=== PATIENT | male | born 1950 | race Hispanic/Latino ===

== ENCOUNTER 2018-10-23 13:46 | Emergency (ER) | payer MEDICARE ==
[2018-10-23] MEDS ORDERED: 0.9% SODIUM CHLORIDE 500 ML IV BAG IV ONE (14:28)
[2018-10-23 14:29] LABS: BASOPHILS % (AUTO) 1.3 % (0.0-5.0); EOSINOPHILS % (AUTO) 0.4 % (0.0-8.0); HEMATOCRIT 42.3 % (42-54); LYMPHOCYTES % (AUTO) 21.5 % (21.0-51.0); MEAN CORPUSCULAR HEMOGLOBIN 35.5 pg (27.0-33.0); MEAN CORPUSCULAR HGB CONC 33.6 g/dL (32.0-36.0); MEAN CORPUSCULAR VOLUME 105.6 fL (79-99); MONOCYTES % (AUTO) 4.9 % (3.0-13.0); NEUTROPHILS % (AUTO) 71.9 % (40.0-77.0); PLATELET COUNT (AUTO) 257 K/uL (130-400); RED BLOOD CELL COUNT(AUTO) 4.01 MIL/uL (4.50-6.20); RED CELL DISTRIBUTION WIDTH 14.7 % (11.0-15.5); WHITE BLOOD COUNT (AUTO) 7.2 K/uL (4.8-10.8)
[2018-10-23 14:41] LABS: CREATININE 0.7 mg/dL (0.5-1.5); POTASSIUM 3.7 mmol/L (3.5-5.1)
[2018-10-23 14:46] LABS: ALBUMIN 2.9 g/dL (3.5-5.0); BILIRUBIN,TOTAL 0.5 mg/dL (0.2-1.0); TOTAL PROTEIN, SERUM 7.5 g/dL (6.0-8.3)
[2018-10-23 15:45] LABS: RAPID GROUP A STREP NEGATIVE (NEGATIVE)
[2018-10-23 15:57] LABS: APPEARANCE,URINE CLEAR (CLEAR); BILIRUBIN,URINE NEGATIVE (NEGATIVE); COLOR,URINE YELLOW (YELLOW); GLUCOSE, URINE (UA) NEGATIVE (NEGATIVE); KETONES,URINE NEGATIVE (NEGATIVE); LEUKOCYTE ESTERASE ,URINE NEGATIVE (NEGATIVE); NITRATE,URINE NEGATIVE (NEGATIVE); OCCULT BLOOD,URINE NEGATIVE (NEGATIVE); PROTEIN,URINE NEGATIVE (NEGATIVE); UROBILINOGEN,URINE 0.2 mg/dL (0.2-1.0)
[2018-10-23] MEDS ORDERED: SIMETHICONE 80 MG TAB.CHEW ONE (18:23)
[2018-10-23] MEDS ORDERED: FAMOTIDINE 20MG TAB 20 MG TAB ONE (18:23)
== END 2018-10-23 19:03 | disposition home or self-care (01) ==
LOC: EDH 13:46
DX: R63.0 Anorexia (principal); E11.9 Type 2 diabetes mellitus without complications; I10 Essential (primary) hypertension; E78.5 Hyperlipidemia, unspecified
CPT/HCPCS: 36415; 71045; 80053; 81003; 83690; 85025; 86677; 87804 ×2; 87880; 99284; J7040

== ENCOUNTER 2020-04-27 09:36 | Observation (INO) | payer MEDICARE ==
[~2020-04-27] VITALS: Ht 154.9 cm; Wt 54.0 kg
[2020-04-27 12:02] LABS: BASOPHILS % (AUTO) 0.9 % (0.0-5.0); EOSINOPHILS % (AUTO) 0.6 % (0.0-8.0); LYMPHOCYTES % (AUTO) 20.9 % (21.0-51.0); MEAN CORPUSCULAR HGB CONC 34.4 g/dL (32.0-36.0); MEAN CORPUSCULAR VOLUME 104.4 fL (79-99); MONOCYTES % (AUTO) 7.3 % (3.0-13.0); NEUTROPHILS % (AUTO) 69.5 % (40.0-77.0); PLATELET COUNT (AUTO) 248 K/uL (130-400); RED BLOOD CELL COUNT(AUTO) 4.31 MIL/uL (4.50-6.20); RED CELL DISTRIBUTION WIDTH 13.2 % (11.0-15.5); WHITE BLOOD COUNT (AUTO) 5.3 K/uL (4.8-10.8)
[2020-04-27 12:27] LABS: INR 1.05 (0.85-1.15); PARTIAL THROMBOPLASTIN TIME 27.2 SEC (26.3-35.5); PROTHROMBIN TIME 11.3 SEC (9.6-11.6)
[2020-04-27 12:31] LABS: CREATININE 0.8 mg/dL (0.5-1.5); POTASSIUM 4.3 mmol/L (3.5-5.1)
[2020-04-27 12:35] LABS: ALBUMIN 3.1 g/dL (3.5-5.0); BILIRUBIN,TOTAL 0.5 mg/dL (0.2-1.0); TOTAL PROTEIN, SERUM 7.7 g/dL (6.0-8.3)
[2020-04-27] MEDS ORDERED: ACETAMINOPHEN 325 MG TAB PO PRN (15:15)
[2020-04-27] MEDS ORDERED: FAMOTIDINE/PF 20 MG/2 ML VIAL IV SCH (21:00)
[2020-04-27] MEDS ORDERED: FAMOTIDINE/PF 20 MG/2 ML VIAL IV ONE (21:06)
[2020-04-27 21:11] LABS: BASOPHILS % (AUTO) 1.5 % (0.0-5.0); EOSINOPHILS % (AUTO) 1.5 % (0.0-8.0); HEMATOCRIT 42.7 % (42-54); LYMPHOCYTES % (AUTO) 34.6 % (21.0-51.0); MEAN CORPUSCULAR HEMOGLOBIN 36.1 pg (27.0-33.0); MEAN CORPUSCULAR HGB CONC 34.9 g/dL (32.0-36.0); MEAN CORPUSCULAR VOLUME 103.4 fL (79-99); MONOCYTES % (AUTO) 10.4 % (3.0-13.0); NEUTROPHILS % (AUTO) 51.3 % (40.0-77.0); PLATELET COUNT (AUTO) 245 K/uL (130-400); RED BLOOD CELL COUNT(AUTO) 4.13 MIL/uL (4.50-6.20); RED CELL DISTRIBUTION WIDTH 13.2 % (11.0-15.5); WHITE BLOOD COUNT (AUTO) 4.1 K/uL (4.8-10.8)
[2020-04-27 21:15] VITALS: BP 129/74
[2020-04-27 21:25] LABS: CREATININE 0.8 mg/dL (0.5-1.5); POTASSIUM 3.9 mmol/L (3.5-5.1)
[2020-04-27 21:26] LABS: INR 1.02 (0.85-1.15)
[2020-04-27] MEDS: DEXTROSE 5 % AND 0.9 % NACL 1,000 ML IV SCH (22:07)
[2020-04-28] VITALS (32 sets, daily range): BP systolic 96–164; BP diastolic 43–98
[2020-04-28] MEDS: DEXTROSE 5 % AND 0.9 % NACL 1,000 ML IV SCH (02:22)
[2020-04-28 05:40] LABS: BASOPHILS % (AUTO) 1.2 % (0.0-5.0); EOSINOPHILS % (AUTO) 1.5 % (0.0-8.0); HEMATOCRIT 40.5 % (42-54); LYMPHOCYTES % (AUTO) 28.7 % (21.0-51.0); MEAN CORPUSCULAR HEMOGLOBIN 35.8 pg (27.0-33.0); MEAN CORPUSCULAR HGB CONC 34.1 g/dL (32.0-36.0); MEAN CORPUSCULAR VOLUME 104.9 fL (79-99); MONOCYTES % (AUTO) 12.7 % (3.0-13.0); NEUTROPHILS % (AUTO) 55.4 % (40.0-77.0); PLATELET COUNT (AUTO) 236 K/uL (130-400); RED BLOOD CELL COUNT(AUTO) 3.86 MIL/uL (4.50-6.20); RED CELL DISTRIBUTION WIDTH 13.3 % (11.0-15.5); WHITE BLOOD COUNT (AUTO) 4.1 K/uL (4.8-10.8)
[2020-04-28 06:05] LABS: ALBUMIN 2.6 g/dL (3.5-5.0); BILIRUBIN,TOTAL 0.6 mg/dL (0.2-1.0); CREATININE 0.9 mg/dL (0.5-1.5); POTASSIUM 3.8 mmol/L (3.5-5.1); TOTAL PROTEIN, SERUM 6.5 g/dL (6.0-8.3)
[2020-04-28] MEDS ORDERED: ENOXAPARIN SODIUM 30 MG/0.3 ML SQ SCH (09:00)
[2020-04-28] MEDS ORDERED: LIDOCAINE HCL 1% 20 ML VIAL ONE (09:47)
[2020-04-28] MEDS ORDERED: PROPOFOL 10 MG/ML 20ML VIAL IV ONE (09:48)
--- NOTE | 2020-04-28 09:53 | NUR ---
RD NOTIFICATION - TUBE FEEDING Pt admitted for PEG replacement. Pending PEG placement. Recommend initiate continuous tube feeding of Glucerna 1.5 @25mls/hr. Goal rate 45mls/hr. Once PEG is placed. Recommend 150ml free H2O Q6hrs. Bolus recommendations provided as needed for discharge. Recommendations faxed to Samina RN notified. RD NOTE: Pt with history of DM2, Dysphagia, aphasia, Alzheimer's Disease. Pt is bedbound. Appropriate BMI for age. Monitored labs: BG 113, Ca 8.4, Alb 2.6. LBM 04/27/20. RD to continue to monitor. Please notify as additional nutrition concerns arise. Thank you.
[2020-04-28] MEDS ORDERED: CEFAZOLIN SODIUM 1 GM VIAL ONE (09:55)
--- NOTE | 2020-04-28 13:08 | NUR ---
SPOKE TO CAREGIVER MITZI FOR DC PLANNING. STATES PATIENT LIVES WITH HER AND HIS SISTER AT [address] [facility]. STATES BOTH HERSELF AND PATIENTS SISTER SIGN CONSNETS/ DIRECT CARE ETC. STATES PATIENT IS NO LONGER VERBAL AND DOES NOT WALK HAS WHEELCHAIR COMMODE, S/CHAIR, HOSPITAL BED. STATES SHE CAN TRANSPORT BY PRIVATE VEHICLE HOME PATIENT HAS HAD PEG SINCE OCTOBER, TOLERATING BOLUS FEEDS WELL. CM TO FOLLOW, CHART REVIEWED, FAMILY ASKING FOR PT TO BE DISCHARGED TO HOME THIS AFTERNOON IF CLAERED BY GI. Addendum: 04/28/20 at 1313 by PETER FLANAGAN RN CM Amended: Links added.
--- NOTE | 2020-04-28 17:00 | NUR ---
DISCHARGE discussed discharge instructions with caregiver voices understanding of instructions to private car via wheelchair
== END 2020-04-28 17:15 | disposition home or self-care (01) ==
LOC: EDH 09:36 → EDHIP 15:07 → INTOOBSV 15:07 → 3DH 21:00
PROVIDERS: ADMIT Hospitalist; ATTEND Hospitalist
DX: K94.23 Gastrostomy malfunction (principal); Z20.828 Contact with and (suspected) exposure to other viral communicable diseases; R13.10 Dysphagia, unspecified; R47.01 Aphasia; K59.00 Constipation, unspecified; E43 Unspecified severe protein-calorie malnutrition; G30.9 Alzheimer's disease, unspecified; F02.80 Dementia in other diseases classified elsewhere, unspecified severity, without behavioral disturbance, psychotic disturbance, mood disturbance, and anxiety; E11.9 Type 2 diabetes mellitus without complications; E78.5 Hyperlipidemia, unspecified; F17.200 Nicotine dependence, unspecified, uncomplicated; Z96.642 Presence of left artificial hip joint; Z74.01 Bed confinement status; Z79.84 Long term (current) use of oral hypoglycemic drugs; Z79.899 Other long term (current) drug therapy
CPT/HCPCS: 36415 ×2; 43246; 70450; 80053 ×2; 82948 ×3; 85025 ×3; 85610 ×2; 85730; 87426; 96361 ×2; 96374; 99285; A4222; A4223; A4606; A4620; A4657; G0378 ×10; J0690; J2704; J3490 ×2; J7030; J7042; U0003; 80048